=== PATIENT | female | born 1965 | race Caucasian/White ===

== ENCOUNTER 2016-12-24 11:55 | Emergency (ER) | payer BC, OTHER ==
[~2016-12-24] VITALS: Ht 167.6 cm; Wt 90.0 kg
[~2016-12-24 11:55] MED LIST: ABIL30TA2 PO; ADDE15TA PO; ADDE30TA PO; ALPR.25 PO; LEVO.075 PO; LEVO1CAP3 PO; TRAZ50TA12 PO
[2016-12-24 12:05] VITALS: BP 134/78; PULSE 83; RESP 15; TEMP 98; O2SAT 98
[2016-12-24] MEDS ORDERED: ADDE30TA PO ×2 (12:11)
--- NOTE | 2016-12-24 12:24 | PD ---
HPI Chief Complaint: Psychiatric Symptoms Time Seen by Provider: 12:05 Travel History International Travel<30 days: No Contact w/Intl Traveler<30days: No Traveled to known affect area: No History of Present Illness HPI The patient is a 51-year-old female who presents to the emergency department as a Vaca act. According to the Vaca act the patient's , with the patient is currently from, called for her well-being check yesterday. The police arrived and the patient apparently stated that she wanted "suicide by helicopter officer ", therefore, the police left. The called for another well-being check today and when the police arrived the patient was making homicidal threats toward her . They also stated the patient has a gun in the house, therefore, placed her under a Vaca act. The patient does have a history of depression and anxiety and takes multiple psychiatric medications. She denies any current suicidal ideation or homicidal ideation. She does admit to drinking alcohol last night, white count, and is unable to quantify the amount of liquor she drank. She denies any illicit drug use. She denies any current physical complaints. She does have a previous history of suicide attempts. [facility] Past Medical History Depression: Yes Respiratory: Yes ("new masses in lungs" being tx out pt) Immunizations Current: Yes Menopausal: Yes : 0 Past Surgical History Abdominal Surgery: Yes ('TUMMY TUCK') Hysterectomy: Yes Other Surgery: Yes (BREAST AUGMENTATION) Social History Alcohol Use: Yes Tobacco Use: No Substance Use: No Allergies-Medications (Allergen,Severity, Reaction): Coded Allergies: No Known Allergies (Unverified , 12/24/16) Reported Meds & Prescriptions Reported Meds & Active Scripts Active Reported Adderall (Amphetamine-Dextroamphetamine) 30 Mg Tab 30 Mg PO HS Avoid late evening doses. Space doses at least 4 to 6 hours if more than once/day dosing. Adderall (Amphetamine-Dextroamphetamine) 30 Mg Tab 45 Mg PO DAILY Avoid late evening doses. Space doses at least 4 to 6 hours if more than once/day dosing. Synthroid (Levothyroxine Sodium) 75 Mcg Tab 75 Mcg PO DAILY Abilify (Aripiprazole) 30 Mg Tab 30 Mg PO DAILY Fetzima ER (Levomilnacipran ER) 40 Mg Caper 40 Mg PO DAILY Trazodone (Trazodone HCl) 50 Mg Tab 50 Mg PO HS Xanax (Alprazolam) 0.25 Mg Tab 0.25 Mg PO Q4H PRN Review of Systems Except as stated in HPI: all other systems reviewed are Neg HENT: No: Lightheadedness Cardiovascular: No: Chest Pain or Discomfort Respiratory: No: Shortness of Breath Gastrointestinal: No: Nausea, Vomiting, Abdominal Pain Psychiatric: Positive: Anxiety, Depression, Substance Abuse (alcohol use) Physical Exam Narrative GENERAL: Awake, alert, nontoxic-appearing 21-year-old female appears her stated age and is in no acute respiratory distress. SKIN: Focused skin assessment warm/dry. HEAD: Atraumatic. Normocephalic. EYES: Pupils equal and round. No scleral icterus. No injection or drainage. ENT: No nasal bleeding or discharge. Mucous membranes pink and moist. NECK: Trachea midline. No JVD. CARDIOVASCULAR: Regular rate and rhythm. No murmur appreciated. RESPIRATORY: No accessory muscle use. Clear to auscultation. Breath sounds equal bilaterally. GASTROINTESTINAL: Abdomen soft, non-tender, nondistended. No rebound tenderness. MUSCULOSKELETAL: No obvious deformities. No clubbing. No cyanosis. No edema. NEUROLOGICAL: Awake and alert. No obvious cranial nerve deficits. Motor grossly within normal limits. Normal speech. Nonfocal. PSYCHIATRIC: Slightly flat affect. Data Data Last Documented VS Vital Signs Date Time Temp Pulse Resp B/P (MAP) Pulse Ox O2 Delivery O2 Flow Rate FiO2 12/24/16 12:05 98.0 83 15 134/78 (96) 98 Orders Orders Complete Blood Count With Diff (12/24/16 12:15) Comprehensive Metabolic Panel (12/24/16 12:15) Thyroid Stimulating Hormone (12/24/16 12:15) Psych Screen (12/24/16 12:15) Drug Screen, Random Urine (12/24/16 12:15) Alcohol (Ethanol) (12/24/16 12:15) Labs Laboratory Tests Test 12/24/16 12:00 12/24/16 12:52 Urine Opiates Screen NEG Urine Barbiturates Screen NEG Urine Amphetamines Screen POS Urine Benzodiazepines Screen POS Urine Cocaine Screen NEG Urine Cannabinoids Screen NEG White Blood Count 8.9 TH/MM3 Red Blood Count 4.06 MIL/MM3 Hemoglobin 13.1 GM/DL Hematocrit 38.7 % Mean Corpuscular Volume 95.4 FL Mean Corpuscular Hemoglobin 32.2 PG Mean Corpuscular Hemoglobin Concent 33.8 % Red Cell Distribution Width 13.2 % Platelet Count 303 TH/MM3 Mean Platelet Volume 9.5 FL Neutrophils (%) (Auto) 73.6 % Lymphocytes (%) (Auto) 16.6 % Monocytes (%) (Auto) 7.2 % Eosinophils (%) (Auto) 1.9 % Basophils (%) (Auto) 0.7 % Neutrophils # (Auto) 6.5 TH/MM3 Lymphocytes # (Auto) 1.5 TH/MM3 Monocytes # (Auto) 0.6 TH/MM3 Eosinophils # (Auto) 0.2 TH/MM3 Basophils # (Auto) 0.1 TH/MM3 CBC Comment DIFF FINAL Differential Comment Blood Urea Nitrogen 9 MG/DL Creatinine 0.71 MG/DL Random Glucose 93 MG/DL Total Protein 8.2 GM/DL Albumin 3.7 GM/DL Calcium Level 9.1 MG/DL Alkaline Phosphatase 132 U/L Aspartate Amino Transf (AST/SGOT) 16 U/L Alanine Aminotransferase (ALT/SGPT) 22 U/L Total Bilirubin 0.8 MG/DL Sodium Level 138 MEQ/L Potassium Level 3.8 MEQ/L Chloride Level 102 MEQ/L Carbon Dioxide Level 27.1 MEQ/L Anion Gap 9 MEQ/L Estimat Glomerular Filtration Rate 87 ML/MIN Thyroid Stimulating Hormone 3rd Gen 0.278 uIU/ML Ethyl Alcohol Level LESS THAN 3 MG/DL MDM Medical Decision Making Medical Screen Exam Complete: Yes Emergency Medical Condition: Yes Medical Record Reviewed: Yes Interpretation(s) Laboratory Tests Test 12/24/16 12:00 12/24/16 12:52 Urine Opiates Screen NEG Urine Barbiturates Screen NEG Urine Amphetamines Screen POS Urine Benzodiazepines Screen POS Urine Cocaine Screen NEG Urine Cannabinoids Screen NEG White Blood Count 8.9 TH/MM3 Red Blood Count 4.06 MIL/MM3 Hemoglobin 13.1 GM/DL Hematocrit 38.7 % Mean Corpuscular Volume 95.4 FL Mean Corpuscular Hemoglobin 32.2 PG Mean Corpuscular Hemoglobin Concent 33.8 % Red Cell Distribution Width 13.2 % Platelet Count 303 TH/MM3 Mean Platelet Volume 9.5 FL Neutrophils (%) (Auto) 73.6 % Lymphocytes (%) (Auto) 16.6 % Monocytes (%) (Auto) 7.2 % Eosinophils (%) (Auto) 1.9 % Basophils (%) (Auto) 0.7 % Neutrophils # (Auto) 6.5 TH/MM3 Lymphocytes # (Auto) 1.5 TH/MM3 Monocytes # (Auto) 0.6 TH/MM3 Eosinophils # (Auto) 0.2 TH/MM3 Basophils # (Auto) 0.1 TH/MM3 CBC Comment DIFF FINAL Differential Comment Blood Urea Nitrogen 9 MG/DL Creatinine 0.71 MG/DL Random Glucose 93 MG/DL Total Protein 8.2 GM/DL Albumin 3.7 GM/DL Calcium Level 9.1 MG/DL Alkaline Phosphatase 132 U/L Aspartate Amino Transf (AST/SGOT) 16 U/L Alanine Aminotransferase (ALT/SGPT) 22 U/L Total Bilirubin 0.8 MG/DL Sodium Level 138 MEQ/L Potassium Level 3.8 MEQ/L Chloride Level 102 MEQ/L Carbon Dioxide Level 27.1 MEQ/L Anion Gap 9 MEQ/L Estimat Glomerular Filtration Rate 87 ML/MIN Thyroid Stimulating Hormone 3rd Gen 0.278 uIU/ML Ethyl Alcohol Level LESS THAN 3 MG/DL Differential Diagnosis Differential diagnosis includes anxiety, depressive disorder NOS, major depression, substance induced mood disorder, adjustment reaction, stress reaction, Vaca act. Narrative Course Labs were drawn and sent. Psychiatric evaluation was ordered. TSH was slightly low, patient is on replacement therapy. Alcohol level is unremarkable , tox screen is positive for benzodiazepines and methamphetamines. Patient is medically clear to be evaluated by psychiatry. Disposition as per psych. Diagnosis Primary Impression: Depressive disorder Additional Impression: Adjustment reaction Qualified Codes: F43.20 - Adjustment disorder, unspecified Condition: Stable Jorge Das MD Dec 24, 2016 12:24
[2016-12-24 13:04] LABS: AUTOMATED NEUTROPHIL # 6.5 TH/MM3 (1.8-7.7); BASOPHIL # 0.1 TH/MM3 (0-0.2); BASOPHIL % 0.7 % (0.0-2.0); EOSINOPHIL # 0.2 TH/MM3 (0-0.4); EOSINOPHIL % 1.9 % (0.0-4.0); HEMATOCRIT 38.7 % (35.0-46.0); HEMO FLAGS DIFF FINAL; LYMPH % 16.6 % (9.0-44.0); LYMPHOCYTE # 1.5 TH/MM3 (1.0-4.8); MEAN CELL VOLUME 95.4 FL (80.0-100.0); MEAN CORPUSCULAR HEMOGLOBIN 32.2 PG (27.0-34.0); MEAN CORPUSCULAR HGB CONC 33.8 % (32.0-36.0); MONO % 7.2 % (0.0-8.0); NEUT % 73.6 % (16.0-70.0); PLATELET COUNT 303 TH/MM3 (150-450); RED BLOOD COUNT 4.06 MIL/MM3 (4.00-5.30); RED CELL DISTRIBUTION WIDTH 13.2 % (11.6-17.2); WHITE BLOOD COUNT 8.9 TH/MM3 (4.0-11.0)
[2016-12-24 13:17] LABS: ANION GAP 9 MEQ/L (5-15); AST (GOT) 16 U/L (15-37); BICARBONATE 27.1 MEQ/L (21.0-32.0); BLOOD UREA NITROGEN 9 MG/DL (7-18); CHLORIDE 102 MEQ/L (98-107); GLOMERULAR FILTRATION RATE 87 ML/MIN (>89); POTASSIUM 3.8 MEQ/L (3.5-5.1); SODIUM (NA) 138 MEQ/L (136-145)
[2016-12-24 13:19] LABS: ALT (GPT) 22 U/L (10-53)
[2016-12-24 13:29] LABS: ALCOHOL LESS THAN 3 MG/DL (0-5); ALKALINE PHOSPHATASE 132 U/L (45-117); TOTAL BILIRUBIN ADULT 0.8 MG/DL (0.2-1.0)
[2016-12-24 15:20] VITALS: BP 124/66; PULSE 79; RESP 18; TEMP 97.9; O2SAT 98
[2016-12-25 02:55] VITALS: BP 138/78; PULSE 90; RESP 18; O2SAT 97
[2016-12-25] MEDS ORDERED: ALPRAZolam 0.25 MG TAB PO ONE (09:00)
[2016-12-25] MEDS ORDERED: LEVOTHYROXINE SODIUM 75 MCG TAB PO ONE (09:00)
[2016-12-25] MEDS ORDERED: ARIPiprazole 30 MG TAB PO ONE (09:00)
[2016-12-25] MEDS ORDERED: DEXTROAMPHETAMINE/AMPHETAMINE 30 MG TAB PO ONE (09:00)
[2016-12-25 10:19] VITALS: BP 118/56; PULSE 99; RESP 18
[2016-12-25 15:48] VITALS: BP 116/75; PULSE 98; RESP 18; O2SAT 96
[2016-12-25] MEDS ORDERED: ALPRAZolam 0.25 MG TAB PO PRN (18:00)
[2016-12-25] MEDS ORDERED: traZODone HCL 50 MG TAB PO SCH (21:00)
[2016-12-25 23:11] VITALS: BP 122/72; PULSE 100; RESP 18; TEMP 98; O2SAT 96
[2016-12-26 02:14] VITALS: BP 133/79; PULSE 96; RESP 18; TEMP 96.9; O2SAT 97
[2016-12-26 05:06] VITALS: BP 121/73; PULSE 103; RESP 18; TEMP 96.9; O2SAT 96
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
--- NOTE | 2016-12-26 10:25 | PD ---
Physical Exam Narrative Patient was medically cleared by ED physician. Patient was seen by psychiatrist this morning. Data Data Last Documented VS Vital Signs Date Time Temp Pulse Resp B/P (MAP) Pulse Ox O2 Delivery O2 Flow Rate FiO2 12/26/16 05:06 96.9 103 18 121/73 (89) 96 Room Air Orders Orders Complete Blood Count With Diff (12/24/16 12:15) Comprehensive Metabolic Panel (12/24/16 12:15) Thyroid Stimulating Hormone (12/24/16 12:15) Psych Screen (12/24/16 12:15) Drug Screen, Random Urine (12/24/16 12:15) Alcohol (Ethanol) (12/24/16 12:15) Diet Regular Basic (12/24/16 Dinner) Diet Regular Basic (12/25/16 Breakfast) Dextroamphet-Ampheta (Adderall) (12/25/16 09:00) Alprazolam (Xanax) (12/25/16 09:00) Aripiprazole (Abilify) (12/25/16 09:00) Levothyroxine (Synthroid) (12/25/16 09:00) Diet Regular Basic (12/25/16 Lunch) Diet Regular Basic (12/25/16 Dinner) Alprazolam (Xanax) (12/25/16 18:00) Trazodone (Desyrel) (12/25/16 21:00) Diet Regular Basic (12/26/16 Breakfast) Diet Regular Basic (12/26/16 Lunch) Labs Laboratory Tests Test 12/24/16 12:00 12/24/16 12:52 Urine Opiates Screen NEG Urine Barbiturates Screen NEG Urine Amphetamines Screen POS Urine Benzodiazepines Screen POS Urine Cocaine Screen NEG Urine Cannabinoids Screen NEG White Blood Count 8.9 TH/MM3 Red Blood Count 4.06 MIL/MM3 Hemoglobin 13.1 GM/DL Hematocrit 38.7 % Mean Corpuscular Volume 95.4 FL Mean Corpuscular Hemoglobin 32.2 PG Mean Corpuscular Hemoglobin Concent 33.8 % Red Cell Distribution Width 13.2 % Platelet Count 303 TH/MM3 Mean Platelet Volume 9.5 FL Neutrophils (%) (Auto) 73.6 % Lymphocytes (%) (Auto) 16.6 % Monocytes (%) (Auto) 7.2 % Eosinophils (%) (Auto) 1.9 % Basophils (%) (Auto) 0.7 % Neutrophils # (Auto) 6.5 TH/MM3 Lymphocytes # (Auto) 1.5 TH/MM3 Monocytes # (Auto) 0.6 TH/MM3 Eosinophils # (Auto) 0.2 TH/MM3 Basophils # (Auto) 0.1 TH/MM3 CBC Comment DIFF FINAL Differential Comment Blood Urea Nitrogen 9 MG/DL Creatinine 0.71 MG/DL Random Glucose 93 MG/DL Total Protein 8.2 GM/DL Albumin 3.7 GM/DL Calcium Level 9.1 MG/DL Alkaline Phosphatase 132 U/L Aspartate Amino Transf (AST/SGOT) 16 U/L Alanine Aminotransferase (ALT/SGPT) 22 U/L Total Bilirubin 0.8 MG/DL Sodium Level 138 MEQ/L Potassium Level 3.8 MEQ/L Chloride Level 102 MEQ/L Carbon Dioxide Level 27.1 MEQ/L Anion Gap 9 MEQ/L Estimat Glomerular Filtration Rate 87 ML/MIN Thyroid Stimulating Hormone 3rd Gen 0.278 uIU/ML Ethyl Alcohol Level LESS THAN 3 MG/DL MDM Supervised Visit with JOYA: No Narrative Course Patient was medically cleared by ED physician. Patient was psychiatrically cleared by psychiatry this morning. Patient can be discharged. Diagnosis Primary Impression: Adjustment disorder with mixed disturbance of emotions and conduct Patient Instructions: General Instructions, Mood Disorders (ED), Depression (ED ), Medical Clearance for Psychiatric Care (ED) Departure Forms: Tests/Procedures Disposition: 01 DISCHARGE HOME Condition: Stable Bhavin Shane MD Dec 26, 2016 10:25
[2016-12-26 10:34] VITALS: BP 121/73; TEMP 98.1
== END 2016-12-26 10:59 | disposition home or self-care (01) ==
LOC: NEPD 11:55 → NEPJ 12-26 10:59
DX: F43.25 Adjustment disorder with mixed disturbance of emotions and conduct (principal); F41.9 Anxiety disorder, unspecified; I10 Essential (primary) hypertension; Z79.899 Other long term (current) drug therapy
CPT/HCPCS: 80053; 80307; 84443; 85025; 99284